=== PATIENT | female | born 1995 | race African-American/Black ===

== ENCOUNTER 2016-09-01 10:39 | Emergency (ER) | payer MEDICARE, OTHER ==
[~2016-09-01] VITALS: Ht 157.5 cm; Wt 52.2 kg
[2016-09-01 10:40] VITALS: BP_SYST 139
[2016-09-01 12:21] VITALS: BP_SYST 138
== END 2016-09-01 12:21 | disposition home or self-care (01) ==
LOC: SED 10:39
DX: S92.352A Displaced fracture of fifth metatarsal bone, left foot, initial encounter for closed fracture (principal); W19.XXXA Unspecified fall, initial encounter; Y93.89 Activity, other specified; Y92.89 Other specified places as the place of occurrence of the external cause; Y99.8 Other external cause status
CPT/HCPCS: 99284

== ENCOUNTER 2017-06-10 10:15 | Emergency (ER) | payer MEDICARE ==
[~2017-06-10] VITALS: Ht 157.5 cm; Wt 50.8 kg
[2017-06-10 10:15] VITALS: BP_SYST 120
[2017-06-10] MEDS ORDERED: LEVOFLOXACIN 500 MG/D5W 100 ML IV ONE (11:00)
[2017-06-10] MEDS ORDERED: KETOROLAC TROMETHAMINE 30 MG VIAL IVP ONE (11:00)
[2017-06-10] MEDS ORDERED: NACL 0.9% 1,000 ML IV ONE (11:00)
[2017-06-10] MEDS ORDERED: ACETAMINOPHEN 500 MG TABLET PO ONE (11:00)
[2017-06-10 11:27] LABS: BASOPHILS # (AUTO) 0.1 K/uL (0.0-0.2); BASOPHILS % (AUTO) 0.6 % (0.0-2.0); EOSINOPHILS % (AUTO) 0.1 % (0.0-4.0); HEMOGLOBIN 12.3 g/dL (12.0-16.0); LYMPHOCYTES # (AUTO) 0.8 K/uL (1.0-5.5); LYMPHOCYTES % (AUTO) 9.5 % (20.5-51.5); MEAN CORPUSCULAR HEMOGLOBIN 29 pg (27-31); MEAN CORPUSCULAR HGB CONC 33 % (32-36); MEAN CORPUSCULAR VOLUME 89 fL (79.0-98.0); MONOCYTES # (AUTO) 0.7 K/uL (0.0-1.0); MONOCYTES % (AUTO) 7.7 % (1.7-9.3); NEUTROPHILS # (AUTO) 7.2 K/uL (1.8-7.7); NEUTROPHILS % (AUTO) 82.1 % (40.0-70.0); PLATELET COUNT (AUTO) 280 K/uL (130-430); RED BLOOD CELL COUNT(AUTO) 4.17 MIL/uL (4.2-6.2); RED CELL DISTRIBUTION WIDTH 13.7 % (9.0-15.0); WHITE BLOOD COUNT (AUTO) 8.8 K/uL (4.8-10.8)
[2017-06-10 11:39] LABS: CALCIUM 9.5 mg/dL (8.4-11.0); CREATININE 0.72 mg/dL (0.55-1.30); POTASSIUM 3.5 mmol/L (3.5-5.1)
[2017-06-10 11:44] LABS: ALBUMIN 4.6 g/dL (3.4-4.8); TOTAL BILIRUBIN 0.4 mg/dL (0.0-1.0)
[2017-06-10 11:53] LABS: PROTHROMBIN TIME 10.1 SECS (9.5-12.5)
[2017-06-10 12:31] VITALS: BP_SYST 116
== END 2017-06-10 12:28 | disposition home or self-care (01) ==
LOC: SED 10:15
DX: B34.9 Viral infection, unspecified (principal)
CPT/HCPCS: 36415; 71045; 80053; 83605; 85025; 85610; 86710; 87040; 96365; 96375; 99285; J1885; J1956; J7030

== ENCOUNTER 2017-10-18 09:27 | Emergency (ER) | payer MEDICARE ==
[~2017-10-18] VITALS: Ht 157.5 cm; Wt 52.2 kg
[2017-10-18] MEDS ORDERED: BACITRACIN 1 GM OINT TP ONE (09:45)
[2017-10-18] MEDS ORDERED: LIDOCAINE 1% 10 MG/ML, 20 ML MDV INJ ONE (09:45)
--- NOTE | 2017-10-18 10:00 | NUR ---
Pt A&O no s/s of distress at this time bleeding controlled. Informed of a delay for traige due to high acuity denied further questions or concerns. In waiting room with family
--- NOTE | 2017-10-18 10:42 | NUR ---
unable to locate in waiting room
[2017-10-18 11:10] VITALS: BP_SYST 146
--- NOTE | 2017-10-18 11:10 | NUR ---
Placed in room 8 Lac tray at bedside
--- NOTE | 2017-10-18 11:27 | NUR ---
ER at bedside examining patient.
[2017-10-18] MEDS ORDERED: DIPH-TET-PERTUS Vaccine 0.5 ML VIAL (ADACEL) I.M. ONE (11:30)
[2017-10-18 12:05] VITALS: BP_SYST 132
--- NOTE | 2017-10-18 12:05 | NUR ---
Patient given written and verbal discharge instructions and verbalizes understanding. ER MD discussed with patient the results and treatment provided. Patient in stable condition. ID arm band removed. Rx of Bacitracin and Tylenol given. Patient educated on pain management and to follow up with PMD within 2-3days for wound check; Pain Scale 0/10; pt instructed to have sutures removed in 7-10days; pt and MD agreeable to discharge home. Opportunity for questions provided and answered. Medication side effect fact sheet provided.
== END 2017-10-18 12:05 | disposition home or self-care (01) ==
LOC: SED 09:27
DX: S01.81XA Laceration without foreign body of other part of head, initial encounter (principal); R03.0 Elevated blood-pressure reading, without diagnosis of hypertension; W01.190A Fall on same level from slipping, tripping and stumbling with subsequent striking against furniture, initial encounter; Y93.89 Activity, other specified; Y92.89 Other specified places as the place of occurrence of the external cause; Y99.8 Other external cause status
CPT/HCPCS: 90715; 99283

== ENCOUNTER 2017-10-30 14:45 | Emergency (ER) | payer BC, MEDICARE ==
[~2017-10-30] VITALS: Ht 157.5 cm; Wt 52.2 kg
[2017-10-30 15:00] VITALS: BP_SYST 133
--- NOTE | 2017-10-30 15:00 | NUR ---
Pt placed to ER bed 04, report given to ERIC Marino.
--- NOTE | 2017-10-30 15:19 | NUR ---
Patient is awake, alert, oriented x4. She denies pain and previous medical history. No s/s of distress noted.
--- NOTE | 2017-10-30 15:21 | NUR ---
ER Dr. Keene at bedside examining patient.
--- NOTE | 2017-10-30 15:30 | NUR ---
[address] Keene made aware.
[2017-10-30 15:44] VITALS: BP_SYST 133
== END 2017-10-30 15:44 | disposition home or self-care (01) ==
LOC: SED 14:45
DX: S01.81XD Laceration without foreign body of other part of head, subsequent encounter (principal); X58.XXXD Exposure to other specified factors, subsequent encounter
CPT/HCPCS: 99283

== ENCOUNTER 2019-07-18 12:14 | Emergency (ER) | payer BC, MEDICARE ==
[~2019-07-18] VITALS: Ht 157.5 cm; Wt 52.6 kg
[2019-07-18 12:32] VITALS: BP_SYST 125
--- NOTE | 2019-07-18 12:50 | NUR ---
Patient to ER bed 02 to gown for evaluation. Side rails up.
--- NOTE | 2019-07-18 12:52 | NUR ---
Patient arrived in the ED requesting to check on her heart tones. Denied any chest pain or shortness of breath. Denied any fevers, nausea, vomiting, or chills. Patient is alert and oriented x4, respirations even and unlabored, speaking in full sentences, ambulating with a steady gait. VSS, pain level 6/10. Informed of wait time. Instructed to notify ED staff for any changes in condition or worsening of symptoms. Patient verbalized understanding.
--- NOTE | 2019-07-18 12:56 | NUR ---
Positive for FHT - 158BPM
--- NOTE | 2019-07-18 13:09 | NUR ---
ER Dr. Ornelas at bedside examining patient.
[2019-07-18 13:47] LABS: BASOPHILS % (AUTO) 0.8 % (0.0-2.0); EOSINOPHILS % (AUTO) 0.2 % (0.0-4.0); HEMOGLOBIN 11.3 g/dL (12.0-16.0); LYMPHOCYTES # (AUTO) 1.5 K/uL (1.0-5.5); LYMPHOCYTES % (AUTO) 27.2 % (20.5-51.5); MEAN CORPUSCULAR HEMOGLOBIN 31 pg (27-31); MEAN CORPUSCULAR HGB CONC 33 % (32-36); MEAN CORPUSCULAR VOLUME 95 fL (79.0-98.0); MONOCYTES # (AUTO) 0.3 K/uL (0.0-1.0); MONOCYTES % (AUTO) 6.4 % (1.7-9.3); NEUTROPHILS # (AUTO) 3.5 K/uL (1.8-7.7); NEUTROPHILS % (AUTO) 65.4 % (40.0-70.0); PLATELET COUNT (AUTO) 269 K/uL (130-430); RED BLOOD CELL COUNT(AUTO) 3.58 MIL/uL (4.2-6.2); WHITE BLOOD COUNT (AUTO) 5.4 K/uL (4.8-10.8)
[2019-07-18 14:04] LABS: PROTHROMBIN TIME 10.2 SECS (9.5-12.5)
--- NOTE | 2019-07-18 14:30 | NUR ---
Patient given written and verbal discharge instructions and verbalizes understanding. ER MD discussed with patient the results and treatment provided. Patient in stable condition. ID arm band removed. No Rx given. Patient educated on pain management and to follow up with PMD. Pain Scale 0/10. Opportunity for questions provided and answered. Medication side effect fact sheet provided.
[2019-07-18 14:40] VITALS: BP_SYST 125
== END 2019-07-18 14:40 | disposition home or self-care (01) ==
LOC: SED 12:14
DX: O02.0 Blighted ovum and nonhydatidiform mole (principal); Z3A.10 10 weeks gestation of pregnancy
CPT/HCPCS: 36415; 76801; 76817; 84702-TC; 85025; 85610-TC; 85730-TC; 86900; 86901; 99284

== ENCOUNTER 2020-08-25 18:26 | Observation (INO) | payer BC, SELFPAY ==
[~2020-08-25] VITALS: Ht 160 cm; Wt 65.8 kg
[2020-08-25] MEDS ORDERED: MORPHINE SULFATE 10 MG/ML VIAL IVP PRN (20:15)
[2020-08-25] MEDS ORDERED: ONDANSETRON HCL 4 MG/2 ML VIAL IVP PRN (20:15)
[2020-08-25 20:45] LABS: BASOPHILS % (AUTO) 0.5 % (0.0-2.0); EOSINOPHILS % (AUTO) 0.4 % (0.0-4.0); HEMATOCRIT 33.6 % (36-48); HEMOGLOBIN 11.3 g/dL (12.0-16.0); LYMPHOCYTES # (AUTO) 1.5 K/uL (1.0-5.5); LYMPHOCYTES % (AUTO) 22.6 % (20.5-51.5); MEAN CORPUSCULAR HEMOGLOBIN 31 pg (27-31); MEAN CORPUSCULAR HGB CONC 34 % (32-36); MEAN CORPUSCULAR VOLUME 92 fL (79.0-98.0); MONOCYTES # (AUTO) 0.7 K/uL (0.0-1.0); MONOCYTES % (AUTO) 10.5 % (1.7-9.3); NEUTROPHILS # (AUTO) 4.5 K/uL (1.8-7.7); PLATELET COUNT (AUTO) 220 K/uL (130-430); RED BLOOD CELL COUNT(AUTO) 3.65 MIL/uL (4.2-6.2); RED CELL DISTRIBUTION WIDTH 12.9 % (9.0-15.0); WHITE BLOOD COUNT (AUTO) 6.8 K/uL (4.8-10.8)
[2020-08-25] MEDS ORDERED: LR 1,000 ML IV SCH (23:15)
== END 2020-08-25 23:05 | disposition home or self-care (01) ==
LOC: INTOOBSV 18:26 → SPU 18:26
PROVIDERS: ADMIT Obstetrics & Gynecology; ATTEND Obstetrics & Gynecology
DX: O62.9 Abnormality of forces of labor, unspecified (principal); Z3A.38 38 weeks gestation of pregnancy
CPT/HCPCS: 36415; 85025; 86592; 86886; 86900; 86901; G0378

== ENCOUNTER 2020-08-29 05:00 | Inpatient (IN) | payer BC, SELFPAY ==
[~2020-08-29] VITALS: Ht 1 cm; Wt 0.0 kg
[2020-08-29] MEDS ORDERED: LR 1,000 ML IV SCH ×2 (05:45→10:00)
[2020-08-29] MEDS ORDERED: CEFAZOLIN 2 GM IVPB PREMIX 50 ML IV ONE ×2 (05:45→08:00)
[2020-08-29 06:00] LABS: BASOPHILS % (AUTO) 0.5 % (0.0-2.0); EOSINOPHILS % (AUTO) 0.5 % (0.0-4.0); HEMOGLOBIN 11.4 g/dL (12.0-16.0); LYMPHOCYTES % (AUTO) 29.9 % (20.5-51.5); MEAN CORPUSCULAR HEMOGLOBIN 31 pg (27-31); MEAN CORPUSCULAR HGB CONC 34 % (32-36); MEAN CORPUSCULAR VOLUME 92 fL (79.0-98.0); MONOCYTES # (AUTO) 0.7 K/uL (0.0-1.0); NEUTROPHILS # (AUTO) 3.9 K/uL (1.8-7.7); NEUTROPHILS % (AUTO) 59.1 % (40.0-70.0); PLATELET COUNT (AUTO) 225 K/uL (130-430); WHITE BLOOD COUNT (AUTO) 6.7 K/uL (4.8-10.8)
[2020-08-29 06:23] LABS: BILIRUBIN,URINE NEGATIVE (NEGATIVE); BLOOD, URINE 1+ (NEGATIVE); CLARITY/URINE SL CLOUDY (CLEAR); COLOR,URINE YELLOW (YELLOW); GLUCOSE,URINE NEGATIVE (NEGATIVE); KETONES,URINE NEGATIVE (NEGATIVE); LEUKOCYTE ESTERASE ,URINE NEGATIVE (NEGATIVE); NITRITE, URINE NEGATIVE (NEGATIVE); PH,URINE 6.5 (5.0-8.0); PROTEIN URINE TRACE (NEGATIVE); UROBILINOGEN,URINE 0.2 (0.2-1.0)
[2020-08-29 06:30] LABS: BACTERIA,URINE FEW /HPF (None Seen); WBC,URINE 0-3 /HPF (0-3)
[2020-08-29 06:40] VITALS: BP_SYST 121
[2020-08-29] MEDS ORDERED: METHYLERGONOVINE MALEATE 0.2 MG/ML AMP IM ONE (08:00)
[2020-08-29] MEDS ORDERED: BUPIVACAINE /PF 0.75% 10 ML VIAL INJ ONE (08:00)
[2020-08-29] MEDS ORDERED: OXYTOCIN/0.9 % SODIUM CHLORIDE 20 UNITS/1,000 ML BAG IV ONE (08:00)
[2020-08-29] MEDS ORDERED: WATER FOR IRRIGATION,STERILE 1,000 ML IRRIG.SOLN IR ONE (08:00)
[2020-08-29] MEDS ORDERED: ONDANSETRON HCL 4 MG/2 ML VIAL IVP ONE (08:00)
[2020-08-29] MEDS ORDERED: LR 1,000 ML IV.SOLN IV ONE (08:00)
[2020-08-29] MEDS ORDERED: MORPHINE SULFATE 10MG/10ML PF AMP EP ONE (08:00)
[2020-08-29] MEDS ORDERED: METHYLERGONOVINE MALEATE 0.2 MG/ML AMP ONE (08:34)
[2020-08-29] MEDS ORDERED: NALOXONE HCL 0.4 MG/ML AMP (NARCAN) IVP PRN (09:00)
[2020-08-29] MEDS ORDERED: ONDANSETRON HCL 4 MG/2 ML VIAL IVP PRN (09:00)
[2020-08-29] MEDS ORDERED: KETOROLAC TROMETHAMINE 60 MG/2 ML VIAL IM PRN (09:00)
[2020-08-29] MEDS ORDERED: DIPHENHYDRAMINE INJ 50 MG/ML VIAL IVP PRN (09:00)
[2020-08-29 09:17] VITALS: BP_SYST 126
[2020-08-29] MEDS ORDERED: SENNOSIDES/DOCUSATE SODIUM 1 TAB TABLET(SENOKOT-S) PO PRN (10:00)
[2020-08-29] MEDS ORDERED: BISACODYL 10 MG/SUPPOSITORY RC PRN (10:00)
[2020-08-29] MEDS ORDERED: LANOLIN 7 GM OINT. TP PRN (10:00)
[2020-08-29] MEDS ORDERED: OXYTOCIN/0.9 % SODIUM CHLORIDE 1,000 ML IV ONE (10:00)
[2020-08-29] MEDS ORDERED: ANUSOL 1 EA SUPP.RECT (PREPARATION H) RC PRN (10:00)
[2020-08-29] MEDS: SIMETHICONE 80 MG TAB.CHEW PO PRN ×2 (13:19→20:49)
[2020-08-29] MEDS: DOCUSATE SODIUM 100 MG CAPSULE PO PRN (20:49)
[2020-08-29] MEDS ORDERED: TEMAZEPAM 15 MG CAPSULE PO PRN (21:00)
[2020-08-30] MEDS ORDERED: OXYCODONE/ACETAMINOPHEN 5-325 TABLET PO PRN (02:15)
[2020-08-30] MEDS: SIMETHICONE 80 MG TAB.CHEW PO PRN ×4 (02:29→21:03)
[2020-08-30] MEDS: DOCUSATE SODIUM 100 MG CAPSULE PO PRN ×2 (05:49→18:27)
[2020-08-30] MEDS: IBUPROFEN 600 MG TABLET PO SCH ×3 (05:50→18:28)
[2020-08-30] MEDS: OXYCODONE/ACETAMINOPHEN 5-325 TABLET PO PRN (05:53)
[2020-08-30 06:07] LABS: BASOPHILS % (AUTO) 0.3 % (0.0-2.0); EOSINOPHILS % (AUTO) 0.1 % (0.0-4.0); HEMOGLOBIN 9.9 g/dL (12.0-16.0); LYMPHOCYTES # (AUTO) 1.7 K/uL (1.0-5.5); LYMPHOCYTES % (AUTO) 15.5 % (20.5-51.5); MEAN CORPUSCULAR HEMOGLOBIN 31 pg (27-31); MEAN CORPUSCULAR HGB CONC 33 % (32-36); MEAN CORPUSCULAR VOLUME 92 fL (79.0-98.0); MONOCYTES # (AUTO) 0.9 K/uL (0.0-1.0); MONOCYTES % (AUTO) 8.1 % (1.7-9.3); NEUTROPHILS # (AUTO) 8.5 K/uL (1.8-7.7); PLATELET COUNT (AUTO) 207 K/uL (130-430); RED BLOOD CELL COUNT(AUTO) 3.26 MIL/uL (4.2-6.2); WHITE BLOOD COUNT (AUTO) 11.2 K/uL (4.8-10.8)
[2020-08-31] MEDS: SIMETHICONE 80 MG TAB.CHEW PO PRN ×2 (00:14→05:38)
[2020-08-31] MEDS: IBUPROFEN 600 MG TABLET PO SCH (00:15)
[2020-08-31] MEDS: OXYCODONE/ACETAMINOPHEN 5-325 TABLET PO PRN (00:16)
[2020-08-31] MEDS: DOCUSATE SODIUM 100 MG CAPSULE PO PRN ×2 (05:37→08:30)
== END 2020-08-31 11:45 | disposition home or self-care (01) | DRG 785 ==
LOC: SPU 05:00
PROVIDERS: ADMIT Obstetrics & Gynecology; ATTEND Obstetrics & Gynecology
PROC: 0UB70ZZ Excision of Bilateral Fallopian Tubes, Open Approach (ICD-10-PCS; 2020-08-29)
PROC: 10D00Z1 Extraction of Products of Conception, Low, Open Approach (ICD-10-PCS; principal; 2020-08-29 07:30)
DX: O34.211 Maternal care for low transverse scar from previous cesarean delivery (principal); Z30.2 Encounter for sterilization; Z3A.39 39 weeks gestation of pregnancy; Z37.0 Single live birth; Z82.49 Family history of ischemic heart disease and other diseases of the circulatory system; Z83.3 Family history of diabetes mellitus
CPT/HCPCS: 36415; 81000; 85025; 86886; 86900; 86901; 88302; 94760; J0690; J1885; J2210; J2274; J2405; J2590; J3490; J7120